=== PATIENT | female | born 1970 | race Caucasian/White ===

== ENCOUNTER 2017-05-06 11:26 | Emergency (ER) | payer OTHER ==
[~2017-05-06] VITALS: Ht 172.7 cm; Wt 71.0 kg
[2017-05-06 11:30] VITALS: TEMP 36.5; Ht 172.7 cm; Wt 71.0 kg
--- NOTE | 2017-05-06 11:51 | EMERGENCY ROOM VISIT NOTE ---
History Report prepared by Caio: Tyra Castillo Under the Supervision of: Dr. Sly Rush D.O. First contact with patient: 11:28 Chief Complaint: OTHER COMPLAINT Stated Complaint: -OTHER- History of Present Illness The patient is a 46 year old female who presents to the Emergency Room with complaints of worsening low back pain for the past 3 and a half weeks. She rates her current pain as a 5/10. She tried a 1 week dose of steroids approximately 3 days after her pain started, but they only provided minimal relief. 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 Her pain radiates into her left leg and she has also experienced some numbness in her left leg. She reports she took 800 mg of Motrin around 0600 this morning, stating it has provided mild relief. The patient underwent previous herniated disc surgery in [address] Junito Lamb. She also states "I feel like I'm not emptying my bladder fully". She reports "dribbling" when she urinates, and states after she goes, she will immediately feel the need to urinate again. She denies any recent fevers or illnesses. Source of History: patient Onset: 3 and a half weeks Position: back Symptom Intensity: 5/10 Timing: worsening Modifying Factors (Relieving): ibuprofen (Motrin), other (steroids) Associated Symptoms: No fevers Review of Systems See HPI for pertinent positives & negatives. A total of 10 systems reviewed and were otherwise negative. Past Medical & Surgical Medical Problems: (1) Migraines Surgical Problems: (1) History of spinal surgery (2) History of tubal ligation Family History No pertinent family history stated Social History Smoking Status: Never Smoker Alcohol Use: occasionally Drug Use: none Marital Status: Housing Status: lives with family Occupation Status: employed Current/Historical Medications Scheduled Prednisone (Prednisone Tab), 40 MG PO DAILY Allergies Coded Allergies: Cephalosporins (Verified Allergy, Intermediate, KEFEX-HIVES, 05/06/17) Promethazine (Unverified Allergy, Unknown, RESTLESS/ANXIOUS, 05/06/17) Sulfa Drugs (Verified Allergy, Unknown, 05/06/17) Physical Exam Vital Signs Date Time Temp Pulse Resp B/P (MAP) Pulse Ox O2 Delivery O2 Flow Rate FiO2 8/14/17 15:18 83 18 135/90 98 05/06/17 14:20 83 18 143/100 98 Room Air 05/06/17 11:30 36.5 78 20 107/94 98 Room Air Physical Exam GENERAL: Patient is awake, alert, in no acute distress patient is resting comfortably and showing no signs of anxiety EYES: The conjunctivae are clear. The pupils are round and reactive. EARS, NOSE, MOUTH AND THROAT: The nose is without any evidence of any deformity. Mucous membranes are moist tongue is midline NECK: The neck is nontender and supple. RESPIRATORY: Normal respiratory effort is noted there is no evidence of wheezing rhonchi or rales CARDIOVASCULAR: Regular rate and rhythm noted there no murmurs rubs or gallops normal S1 normal S2 GASTROINTESTINAL: The abdomen is soft. Bowel sounds are present in all quadrants. Abdomen is nontender PELVIS: The Pelvis is stable. No tenderness to palpation is noted. BACK: There was low lumbar spine tenderness to palpation, ROM elicited pain. MUSCULOSKELETAL/EXTREMITIES: There is no evidence of gross deformity full range of motion is noted in the hips and shoulders SKIN: There is no obvious evidence of any rash. There are no petechiae, pallor or cyanosis noted. NEUROLOGIC: Patient is awake alert and oriented x3 strength is symmetric patellar reflexes are 2+ bilaterally. Achilles tendon reflex was absent on the left and 2+ on the right. Great toe raise was symmetric. Medical Decision & Procedures ER Provider Diagnostic Interpretation: Radiology results as stated below per my review and radiologist interpretation: MRI LUMBAR SPINE COMBO CLINICAL HISTORY: Low back pain and left lower extremity radiculopathy. COMPARISON STUDY: Abdominal CT dated 02/01/2015. MRI of the lumbar spine dated 08/23/2006. TECHNIQUE: MRI of the lumbar spine is performed utilizing various T1 and T2-weighted sequences in the axial and sagittal planes. Contrast-enhanced sequences are acquired following the IV administration of 7 cc of Gadavist. FINDINGS: Lumbar spine: Vertebral body height and alignment are maintained throughout the lumbar spine. There is straightening of the lumbar lordosis. Tiny anterior osteophytes are seen in the lower lumbar region. Mild endplate edema is seen at L4-L5. Chronic degenerative endplate changes seen at L5-S1. The transverse and spinous processes appear intact. There is no evidence of spondylolysis. There is evidence of previous left hemilaminectomy at L5. Intervertebral discs: There is degenerative disc desiccation seen throughout the lumbar spine. There is advanced loss of height at L5-S1. Mild loss of height is seen at L4-L5. Spinal cord: The partially imaged spinal cord is normal in morphology and signal intensity. The conus medullaris terminates at the L1-L2 interspace. No abnormal enhancement is seen on the postcontrast images. L1-L2: Unremarkable. L2-L3: Unremarkable. L3-L4: There is minimal posterior disc bulge. The central canal and neural foramina are widely patent. Mild facet arthropathy is of no consequence. L4-L5: There is a small disc herniation eccentric to the left which effaces the ventral left aspect of the thecal sac. This impinges on the transiting left L5 nerve root. This also abuts the transiting right L5 nerve root. There is mild acquired compromise of the central canal at this level with a minimum AP diameter of 8 mm. Facet arthropathy is of no consequence. The neural foramina are patent. L5-S1: Facet arthropathy causes mild left neural foraminal stenosis. The central canal is clear. Postoperative scarring is suggested anterior to L5. Sacrum: Visualized sacrum is normal in morphology and signal intensity. Soft tissues: The paraspinous soft tissues are normal as visualized. The partially imaged retroperitoneal structures are grossly unremarkable but incompletely evaluated. IMPRESSION: 1. There is a small disc herniation eccentric to left at L4-L5. This impinges on the transiting left L5 nerve root and causes moderate acquired central canal compromise. 2. Postoperative and degenerative change at additional levels as above. See discussion for detailed level by level analysis. Dictated: 05/06/2017 1:08 PM Transcribed: 05/06/2017 1:45 PM Tyson Electronically signed by: Dhaval Sal M.D. 05/06/2017 1:47 PM Laboratory Results 05/06/17 12:10 Red Blood Count 3.77, Mean Corpuscular Volume 97.1, Mean Corpuscular Hemoglobin 34.0, Mean Corpuscular Hemoglobin Concent 35.0, Mean Platelet Volume 9.3, Neutrophils (%) (Auto) 61.2, Lymphocytes (%) (Auto) 29.1, Monocytes (%) (Auto) 7.8, Eosinophils (%) (Auto) 1.0, Basophils (%) (Auto) 0.7, Neutrophils # (Auto) 3.55, Lymphocytes # (Auto) 1.69, Monocytes # (Auto) 0.45, Eosinophils # (Auto) 0.06, Basophils # (Auto) 0.04 05/06/17 12:10 Test 05/06/17 11:45 05/06/17 12:10 Urine Color YELLOW Urine Appearance CLOUDY (CLEAR) Urine pH 6.0 (4.5-7.5) Urine Specific [place] 1.029 (1.000-1.030) Urine Protein NEG (NEG) Urine Glucose (UA) NEG (NEG) Urine Ketones NEG (NEG) Urine Occult Blood 1+ (NEG) Urine Nitrite NEG (NEG) Urine Bilirubin NEG (NEG) Urine Urobilinogen NEG (NEG) Urine Leukocyte Esterase NEG (NEG) Urine WBC (Auto) 1-5 /hpf (0-5) Urine RBC (Auto) 0-4 /hpf (0-4) Urine Hyaline Casts (Auto) 1-5 /lpf (0-5) Urine Epithelial Cells (Auto) >30 /lpf (0-5) Urine Bacteria (Auto) NEG (NEG) Urine Crystals CALCIUM OXALATE (NONE White Blood Count 5.80 K/uL (4.8-10.8) Red Blood Count 3.77 M/uL (4.2-5.4) Hemoglobin 12.8 g/dL (12.0-16.0) Hematocrit 36.6 % (37-47) Mean Corpuscular Volume 97.1 fL (80-100) Mean Corpuscular Hemoglobin 34.0 pg (25-34) Mean Corpuscular Hemoglobin Concent 35.0 g/dl (32-36) Platelet Count 315 K/uL (130-400) Mean Platelet Volume 9.3 fL (7.4-10.4) Neutrophils (%) (Auto) 61.2 % Lymphocytes (%) (Auto) 29.1 % Monocytes (%) (Auto) 7.8 % Eosinophils (%) (Auto) 1.0 % Basophils (%) (Auto) 0.7 % Neutrophils # (Auto) 3.55 K/uL (1.4-6.5) Lymphocytes # (Auto) 1.69 K/uL (1.2-3.4) Monocytes # (Auto) 0.45 K/uL (0.11-0.59) Eosinophils # (Auto) 0.06 K/uL (0-0.5) Basophils # (Auto) 0.04 K/uL (0-0.2) RDW Standard Deviation 41.8 fL (36.4-46.3) RDW Coefficient of Variation 11.7 % (11.5-14.5) Immature Granulocyte % (Auto) 0.2 % Immature Granulocyte # (Auto) 0.01 K/uL (0.00-0.02) Anion Gap 9.0 mmol/L (3-11) Est Creatinine Clear Calc Drug Dose 97.1 ml/min Estimated GFR () 114.5 Estimated GFR (Non- 98.8 BUN/Creatinine Ratio 15.3 (10-20) Calcium Level 8.8 mg/dl (8.5-10.1) Total Bilirubin 0.5 mg/dl (0.2-1) Direct Bilirubin 0.1 mg/dl (0-0.2) Aspartate Amino Transf (AST/SGOT) 19 U/L (15-37) Alanine Aminotransferase (ALT/SGPT) 33 U/L (12-78) Alkaline Phosphatase 64 U/L (45-117) Total Protein 7.1 gm/dl (6.4-8.2) Albumin 3.7 gm/dl (3.4-5.0) Lipase 117 U/L (73-393) Human Chorionic Gonadotropin, Qual NEG (NEG) Laboratory results per my review. Medications Administered Medications (Trade) Dose Ordered Sig/Cisco Route Start Time Stop Time Status Last Admin Dose Admin Dexamethasone Sodium Phosphate (Decadron Inj) 10 mg NOW ONCE IV 05/06/17 14:15 05/06/17 14:16 DC 05/06/17 14:21 10 MG Ketorolac Tromethamine (Toradol Inj) 30 mg NOW STAT IV 05/06/17 14:11 05/06/17 14:13 DC 05/06/17 14:21 30 MG ED Course 1145: The patient was evaluated in room B11B. A complete history and physical examination were performed. 1300: Gadavist 7 mmol IV. 1411: Toradol 30 mg IV. 1415: Decadron 10 mg IV. 1505: I reevaluated the patient. She is feeling much better. I discussed her results and discharge instructions and she verbalized complete understanding and agreement. Medical Decision Prior records/ancillary studies reviewed. Triage Nursing notes reviewed. The patient's history was concerning for back pain. Differential diagnosis: Etiologies such as musculoskeletal, disc herniation, fracture, aortic disease, metastatic disease, cord compression, discitis, infection, renal colic, gastrointestinal, acute exacerbation of chronic back pain, sciatica, cauda equina, as well as others were entertained. The patient is a 46-year-old female who presented to the emergency department for an evaluation of low back pain. The patient's been having progressively worsening low back pain which has started to radiate to her left leg. She's had similar symptoms in the past and required surgery for correction. The patient had a steroid treatment 3 weeks ago which seemed to improve her symptoms but she seems to become worsened with her symptoms again. The patient had very significant pain. An MRI was obtained. I discussed the patient's MRI report with her which did show a disc herniation at a level that would explain the patient's symptoms. She was treated with pain medication and steroids in the emergency department. The patient has a primary neurosurgeon who she plans on following up with this and is possible. She was encouraged to rest and avoid any strenuous activity. She was also encouraged to continue all medications as prescribed and call her primary surgeon as soon as possible. She was also encouraged to return to the emergency department immediately if symptoms change worsen or the need arises. Medication Reconcilliation Current Medication List: was personally reviewed by me Blood Pressure Screening Patient's blood pressure: Normal blood pressure Blood pressure disposition: Did not require urgent referral Impression Primary Impression: Lumbar radiculopathy Additional Impression: Herniated disc Scribe Attestation The scribe's documentation has been prepared under my direction and personally reviewed by me in its entirety. I confirm that the note above accurately reflects all work, treatment, procedures, and medical decision making performed by me. Departure Information Dispostion Home / Self-Care Prescriptions Prednisone (Prednisone Tab) 20 Mg Tab 40 MG PO DAILY, #10 TAB Prov: Sly Rush, DO 05/06/17 Referrals Sly Prince M.D. (PCP) Patient Instructions Lumbar Radiculopathy, My [facility] Additional Instructions Call your neurosurgeon to schedule a follow-up appointment. Rest and avoid any strenuous activity. Continue all medications as prescribed. Consider using an [id number] proton pump inhibitor such as omeprazole while your taking steroids. Return to the emergency department immediately if symptoms change worsen or the need arises. Problem Qualifiers Additional Impression: Herniated disc Spinal region: lumbar Qualified Codes: M51.26 - Other intervertebral disc displacement, lumbar region
[2017-05-06] MEDS ORDERED: GADAVIST IV PRN (13:00)
[2017-05-06 13:04] LABS: BASO % 0.7 %; BASO ABS # 0.04 K/uL (0-0.2); COMPLETE YES; HEMATOCRIT 36.6 % (37-47); IG% 0.2 %; LYMPH % 29.1 %; LYMPH ABS # 1.69 K/uL (1.2-3.4); MEAN CELL VOLUME 97.1 fL (80-100); MEAN PLATELET VOLUME 9.3 fL (7.4-10.4); MONO % 7.8 %; NEUT % 61.2 %; PLATELET COUNT 315 K/uL (130-400); RED BLOOD COUNT 3.77 M/uL (4.2-5.4)
[2017-05-06 13:10] LABS: URINE APPEARANCE CLOUDY (CLEAR); URINE BILIRUBIN NEG (NEG); URINE COLOR YELLOW; URINE EPITHELIAL CELL AUTO >30 /lpf (0-5); URINE NITRITE NEG (NEG); URINE SPECIFIC GRAVITY 1.029 (1.000-1.030); UROBILINOGEN NEG (NEG)
[2017-05-06 13:15] LABS: BUN/CREATININE RATIO 15.3 (10-20); CALCIUM 8.8 mg/dl (8.5-10.1); CREATININE 0.73 mg/dl (0.60-1.20); POTASSIUM 3.4 mmol/L (3.5-5.1)
[2017-05-06 13:32] LABS: PREG INTERNAL NEGATIVE QC NEG CLEAR BACKGROUND; PREG INTERNAL POSITIVE QC POS CONTROL LINE
[2017-05-06 13:33] LABS: MANUAL MICROSCOPIC REQUIRED? NO; REVIEW REQ? YES
--- NOTE | 2017-05-06 13:46 | DIAGNOSTIC IMAGING REPORT ---
MRI LUMBAR SPINE COMBO CLINICAL HISTORY: Low back pain and left lower extremity radiculopathy. COMPARISON STUDY: Abdominal CT dated 02/01/2015. MRI of the lumbar spine dated 08/23/2006. TECHNIQUE: MRI of the lumbar spine is performed utilizing various T1 and T2-weighted sequences in the axial and sagittal planes. Contrast-enhanced sequences are acquired following the IV administration of 7 cc of Gadavist. FINDINGS: Lumbar spine: Vertebral body height and alignment are maintained throughout the lumbar spine. There is straightening of the lumbar lordosis. Tiny anterior osteophytes are seen in the lower lumbar region. Mild endplate edema is seen at L4-L5. Chronic degenerative endplate changes seen at L5-S1. The transverse and spinous processes appear intact. There is no evidence of spondylolysis. There is evidence of previous left hemilaminectomy at L5. Intervertebral discs: There is degenerative disc desiccation seen throughout the lumbar spine. There is advanced loss of height at L5-S1. Mild loss of height is seen at L4-L5. Spinal cord: The partially imaged spinal cord is normal in morphology and signal intensity. The conus medullaris terminates at the L1-L2 interspace. No abnormal enhancement is seen on the postcontrast images. L1-L2: Unremarkable. L2-L3: Unremarkable. L3-L4: There is minimal posterior disc bulge. The central canal and neural foramina are widely patent. Mild facet arthropathy is of no consequence. L4-L5: There is a small disc herniation eccentric to the left which effaces the ventral left aspect of the thecal sac. This impinges on the transiting left L5 nerve root. This also abuts the transiting right L5 nerve root. There is mild acquired compromise of the central canal at this level with a minimum AP diameter of 8 mm. Facet arthropathy is of no consequence. The neural foramina are patent. L5-S1: Facet arthropathy causes mild left neural foraminal stenosis. The central canal is clear. Postoperative scarring is suggested anterior to L5. Sacrum: Visualized sacrum is normal in morphology and signal intensity. Soft tissues: The paraspinous soft tissues are normal as visualized. The partially imaged retroperitoneal structures are grossly unremarkable but incompletely evaluated. IMPRESSION: 1. There is a small disc herniation eccentric to left at L4-L5. This impinges on the transiting left L5 nerve root and causes moderate acquired central canal compromise. 2. Postoperative and degenerative change at additional levels as above. See discussion for detailed level by level analysis. Dictated: 05/06/2017 1:08 PM Transcribed: 05/06/2017 1:45 PM [email or web address] Electronically signed by: Dhaval Sal M.D. 05/06/2017 1:47 PM Dictated Date/Time: 05/06/2017 1:08 PM
[2017-05-06] MEDS ORDERED: KETOROLAC TROMETHAMINE 30 MG/ML VIAL IV STA (14:11)
[2017-05-06] MEDS ORDERED: DEXAMETHASONE SOD INJ 10 MG/ML VIAL IV ONE (14:15)
[2017-05-06] MEDS ORDERED: PRED20TA2 PO (15:02)
[2017-05-06 15:18] VITALS: BP 135/90; PULSE 83; O2SAT 98
== END 2017-05-06 15:18 | disposition home or self-care (01) ==
LOC: C.EDB 11:27
DX: M54.16 Radiculopathy, lumbar region (principal); M51.26 Other intervertebral disc displacement, lumbar region; G43.909 Migraine, unspecified, not intractable, without status migrainosus